=== PATIENT | female | born 1970 | race Two or more races ===

== ENCOUNTER 2023-12-25 23:53 | Emergency (ER) | payer SELFPAY ==
[~2023-12-25] VITALS: Ht 149.9 cm; Wt 76.0 kg
[2023-12-25 23:58] VITALS: BP 177/115; PULSE 76; TEMP 98.7; O2SAT 100; O2SAT 99
[2023-12-26] MEDS: DEXAMETHASONE 10 MG/ML VIAL IM ONE (01:30)
[2023-12-26] MEDS: FAMOTIDINE 20MG TABLET PO ONE (01:30)
[2023-12-26] MEDS: DIPHENHYDRAMINE 25MG CAPSULE PO ONE (01:30)
[2023-12-26] MEDS ORDERED: FAMO-135 MT (01:52)
[2023-12-26 02:10] VITALS: RESP 18
== END 2023-12-26 02:10 | disposition home or self-care (01) ==
LOC: ER 23:53
DX: T78.40XA Allergy, unspecified, initial encounter (principal); R21 Rash and other nonspecific skin eruption; I10 Essential (primary) hypertension; Z90.710 Acquired absence of both cervix and uterus; Z88.6 Allergy status to analgesic agent
CPT/HCPCS: 99283; 96372; Q0163; J1100